=== PATIENT | female | born 1950 | race Caucasian/White ===

== ENCOUNTER 2017-07-28 10:21 | Emergency (ER) | payer OTHER ==
[~2017-07-28] VITALS: Ht 160 cm; Wt 73.0 kg
[2017-07-28] MEDS ORDERED: PROPARACAINE OPHTH 0.5%, 15ML ONE (11:37)
[2017-07-28] MEDS ORDERED: FLUORESCEIN OPHTHALMIC 1 MG STRIP ONE (11:37)
[2017-07-28 12:26] VITALS: BP 132/71
== END 2017-07-28 12:28 | disposition home or self-care (01) ==
LOC: ED 11:56
DX: H43.11 Vitreous hemorrhage, right eye (principal)
CPT/HCPCS: 99281